=== PATIENT | male | born 1975 | race Two or more races ===

== ENCOUNTER → 2019-07-01 | Emergency (ER) | payer MEDICAID ==
[~2019-07-01] VITALS: Ht 165.1 cm; Wt 82.1 kg
[~2019-07-01] MED LIST: IBUPROFEN 400 MG TABLET ONE; IBUPROFEN 400 MG TABLET PO ONE
[2019-07-01 08:08] VITALS: BP_SYST 152
[2019-07-01 10:33] VITALS: BP_DIAS 141
== END | disposition home or self-care (01) ==
LOC: ER 08:01
DX: R07.89 Other chest pain (principal); J45.909 Unspecified asthma, uncomplicated; E78.00 Pure hypercholesterolemia, unspecified; V49.9XXA Car occupant (driver) (passenger) injured in unspecified traffic accident, initial encounter; Y93.89 Activity, other specified; Y92.488 Other paved roadways as the place of occurrence of the external cause; Y99.8 Other external cause status
CPT/HCPCS: 71045-TC; 82962-TC